=== PATIENT | female | born 2000 | race Caucasian/White ===

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

== ENCOUNTER 2021-02-14 18:45 | Emergency (ER) | payer MEDICAID ==
[~2021-02-14] VITALS: Ht 149.9 cm; Wt 91.0 kg
[~2021-02-14 18:45] MED LIST: ONDA4TAB5 MT
[2021-02-14] MEDS ORDERED: DEXAMETHASONE 4MG TABLET PO ONE (21:45)
[2021-02-14 22:17] VITALS: BP 111/73
== END 2021-02-14 22:26 | disposition home or self-care (01) ==
LOC: ER 18:45
DX: R59.0 Localized enlarged lymph nodes (principal)
CPT/HCPCS: 99283; J8540

== ENCOUNTER 2021-05-13 10:26 | Emergency (ER) | payer OTHER ==
[~2021-05-13] VITALS: Ht 149.9 cm; Wt 90.0 kg
[2021-05-13] MEDS ORDERED: KETOROLAC 30MG/ML VIAL IV STA (10:43)
[2021-05-13] MEDS ORDERED: ONDANSETRON HCL 4MG/2ML INJ IV STA (10:43)
[2021-05-13] MEDS ORDERED: SODIUM CHLORIDE 0.9% 1,000 ML IV ONE (10:45)
[2021-05-13 11:07] LABS: BASOPHILS % 0.3 % (0.0-2.0); EOSINOPHILS % 1.1 % (0.0-5.0); HEMATOCRIT. 43.8 % (36.0-48.0); HEMOGLOBIN. 14.9 g/dL (12.0-16.0); LYMPHOCYTES % 9.5 % (20.0-50.0); MEAN CORPUSCULAR HEMOGLOBIN 29.8 pg (28.0-32.0); MEAN CORPUSCULAR VOLUME 87.8 fL (81.0-99.0); MEAN PLATELET VOLUME 7.8 fl (7.4-10.4); MONOCYTES % 6.1 % (2.0-8.0); PLATELET 259 x1000/uL (130-400); RED BLOOD CELL COUNT 4.99 mill/uL (4.2-5.4); RED CELL DISTRIBUTION WIDTH 14.1 % (11.6-14.6)
[2021-05-13 11:10] VITALS: BP 114/75
[2021-05-13 11:15] LABS: CHLORIDE 106 mEq/L (98-107)
[2021-05-13 11:27] LABS: HCG SCREEN NEGATIVE
[2021-05-13 11:44] LABS: CLARITY URINE CLEAR (CLEAR); COLOR URINE DARK YELLOW (YELLOW); KETONES URINE 3+ (NEGATIVE); LEUKOCYTE ESTERASE URINE TRACE (NEGATIVE); NITRITE URINE NEGATIVE (NEGATIVE); OCCULT BLOOD URINE NEGATIVE (NEGATIVE); PH URINE 5.5 (4.5-8.0); PROTEIN URINE TRACE (NEGATIVE); SPECIFIC GRAVITY URINE 1.029 (1.005-1.030)
[2021-05-13] MEDS ORDERED: IMOD MT (12:20)
[2021-05-13] MEDS ORDERED: ONDA4TAB11 PO (12:20)
[2021-05-13] MEDS ORDERED: CIPR-263 MT (12:20)
== END 2021-05-13 14:23 | disposition home or self-care (01) ==
LOC: ER 10:33
DX: N39.0 Urinary tract infection, site not specified (principal)
CPT/HCPCS: 36415; 80053; 81003; 81025; 83690; 84703; 85025; 96374; 96375; 99284; J1885; J2405; J7030

== ENCOUNTER 2021-05-19 09:12 | Emergency (ER) | payer OTHER ==
[~2021-05-19] VITALS: Ht 149.9 cm; Wt 89.0 kg
[~2021-05-19 09:12] MED LIST changes: +CIPR-263 MT; +IMOD MT; +ONDA4TAB11 PO
[2021-05-19 09:18] VITALS: BP 129/74
[2021-05-19 10:52] LABS: BASOPHILS % 1.2 % (0.0-2.0); EOSINOPHILS % 4.1 % (0.0-5.0); HEMATOCRIT. 41.9 % (36.0-48.0); HEMOGLOBIN. 14.6 g/dL (12.0-16.0); LYMPHOCYTES % 26.4 % (20.0-50.0); MEAN CORPUSCULAR HEMOGLOBIN 29.9 pg (28.0-32.0); MEAN CORPUSCULAR VOLUME 85.9 fL (81.0-99.0); MEAN PLATELET VOLUME 7.7 fl (7.4-10.4); NEUTROPHILS % 61.3 % (40.0-76.0); PLATELET 336 x1000/uL (130-400); RED BLOOD CELL COUNT 4.88 mill/uL (4.2-5.4); RED CELL DISTRIBUTION WIDTH 14.2 % (11.6-14.6)
[2021-05-19 10:58] LABS: CHLORIDE 108 mEq/L (98-107)
[2021-05-19 11:09] LABS: B-HCG QUANTITATIVE < 1 mIU/mL (<3)
== END 2021-05-19 13:18 | disposition home or self-care (01) ==
LOC: ER 09:12
DX: N93.8 Other specified abnormal uterine and vaginal bleeding (principal); Z79.899 Other long term (current) drug therapy
CPT/HCPCS: 36415; 76830; 76856; 80053; 84702; 85025; 86850; 86900; 99284